=== PATIENT | female | born 1975 | race Caucasian/White ===

== ENCOUNTER → 2016-06-06 | Outpatient (CLI) | payer OTHER ==
[2016-06-06 11:59] LABS: FREE T4 0.96 NG/DL (0.76-1.46)
== END | disposition home or self-care (01) ==
LOC: M LAB 10:44
PROVIDERS: ATTEND Physician Assistant Medical
DX: E06.3 Autoimmune thyroiditis (principal)

== ENCOUNTER → 2016-09-04 | Outpatient (CLI) | payer OTHER ==
[2016-09-04 21:17] LABS: FREE T4 0.86 NG/DL (0.76-1.46)
== END ==
LOC: M LRY 17:53
PROVIDERS: ATTEND Physician Assistant Medical
DX: E06.3 Autoimmune thyroiditis (principal)

== ENCOUNTER → 2016-10-08 | Day surgery (SDC) | payer OTHER ==
[~2016-10-08] VITALS: Ht 175.3 cm; Wt 68.0 kg
[~2016-10-08] MED LIST: ACETAMINOPHEN 650 MG SUPP As Ordered ONE; ACETAMINOPHEN 650 MG SUPP PR ONE; KETOROLAC 30 MG/ML VIAL (J1885) IV PRN; KETOROLAC 60 MG/2 ML VIAL (J1885) As Ordered ONE; LEVO175T2 PO; LIDOCAINE 2% INJ 100 MG/5 ML SDV (FOR ANES.) As Ordered ONE; LR 1,000 ML IV SCH; MAGN1CAP PO; MIDAZOLAM INJ 2 MG/2 ML VIAL (J2250) As Ordered ONE; MULT1TAB10 PO; ONDANSETRON 4MG/2ML VIAL (J2405) As Ordered ONE; ONDANSETRON 4MG/2ML VIAL (J2405) IV PRN; PERCOCET 5MG/325MG TAB PO PRN; PROPOFOL 200 MG/20 ML VIAL As Ordered ONE; TOPA50TA7 PO; VITA-130 PO; [UNRECOGNIZED DRUG - OTHER] PO; [UNRECOGNIZED DRUG - OTHER] PO; [UNRECOGNIZED DRUG - OTHER] PO; fentaNYL 100 MCG/2 ML INJECTION (J3010) As Ordered ONE; fentaNYL 100 MCG/2 ML INJECTION (J3010) IV PRN
[2016-10-08 08:12] LABS: MEAN CORPUSCULAR HGB CONC 33.4 g/dl (32.0-36.5); MEAN CORPUSCULAR VOLUME 92.7 fl (80.0-96.0); RED CELL DISTRIBUTION WIDTH 13.1 % (11.5-14.5)
[2016-10-08 08:39] LABS: ANION GAP 7 MEQ/L (8-16); BLOOD UREA NITROGEN 16 MG/DL (7-18); CALCIUM LEVEL 8.6 MG/DL (8.5-10.1); CARBON DIOXIDE LEVEL 28 MEQ/L (21-32); CHLORIDE LEVEL 106 MEQ/L (98-107); CREATININE FOR GFR 0.61 MG/DL (0.55-1.02); GLOMERULAR FILTRATION RATE > 60.0 (>60); GLUCOSE, FASTING 89 MG/DL (70-105); HCG, SERUM QUANTITATIVE < 1.0 MIU/ML; SODIUM LEVEL 141 MEQ/L (136-145)
[2016-10-08 12:20] VITALS: BP 105/52
--- NOTE | 2016-10-20 07:04 | RO ---
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 POSTOPERATIVE DIAGNOSIS: Adenocarcinoma in situ high-grade disease. OPERATION PROPOSED: Superficial and deep LEEP colonization of the cervix, removal of IUCD. OPERATION PERFORMED: Superficial and deep LEEP colonization of cervix, removal of IUCD, Sturmdorf suture on the right side of the cervix. ANESTHESIA: General. ESTIMATED BLOOD LOSS: 100 mL. SURGEON: Dr. Dias After adequate anesthesia, bladder drained for 250 mL of clear urine. Time-out was performed. Sequentials on board. No antibiotics required. Visualization of the cervix showed a large multiparous cervix midline with a very generous opening to the os. Acetic acid stain was placed. Evidence of white epithelium at the anterior 12 o'clock position. The strings were not visible. Using a stone forceps we extracted an IUCD sent under separate cover to pathology. We sounded the uterus to a depth at 9 inches and a superficial Loop Electrosurgical Excision (LEEP) was performed, marking the area with a stitch of the 12 o'clock position then using a 10 mm square loop a deeply conization was performed. The patient had a moderate amount of bleeding. We tried an attempted coagulation with a 5 mm ball 90% of the bleeding was successfully contained, but there was still some persistent pumping and therefore we put a Sturmdorf suture on the right side of the cervix, securing hemostasis at that point. We put a dilator in and demonstrated patency of the cervical canal. We monitored the bleeding for about 5-7 minutes. There is no evidence of active bleeding. Instrument and pad count correct. The patient was then taken to recovery in good condition. cc: *ePrcy SHERIDAN
== END ==
LOC: M SDC 07:22
PROVIDERS: ATTEND Obstetrics & Gynecology
DX: D06.9 Carcinoma in situ of cervix, unspecified (principal); Z30.432 Encounter for removal of intrauterine contraceptive device; E03.9 Hypothyroidism, unspecified; G43.909 Migraine, unspecified, not intractable, without status migrainosus; Z79.899 Other long term (current) drug therapy
CPT/HCPCS: 36415; 57522; 58301; 80048; 84702; 85027; 88307; J1885; J2250; J2405; J3010

== ENCOUNTER → 2016-11-07 | Outpatient (CLI) | payer OTHER ==
[~2016-11-07] MED LIST changes: -ACETAMINOPHEN 650 MG SUPP As Ordered ONE; -ACETAMINOPHEN 650 MG SUPP PR ONE; -KETOROLAC 30 MG/ML VIAL (J1885) IV PRN; -KETOROLAC 60 MG/2 ML VIAL (J1885) As Ordered ONE; -LIDOCAINE 2% INJ 100 MG/5 ML SDV (FOR ANES.) As Ordered ONE; -LR 1,000 ML IV SCH; -MIDAZOLAM INJ 2 MG/2 ML VIAL (J2250) As Ordered ONE; -ONDANSETRON 4MG/2ML VIAL (J2405) As Ordered ONE; -ONDANSETRON 4MG/2ML VIAL (J2405) IV PRN; -PERCOCET 5MG/325MG TAB PO PRN; -PROPOFOL 200 MG/20 ML VIAL As Ordered ONE; -fentaNYL 100 MCG/2 ML INJECTION (J3010) As Ordered ONE; -fentaNYL 100 MCG/2 ML INJECTION (J3010) IV PRN
[2016-11-07 16:02] LABS: FREE T4 0.57 NG/DL (0.76-1.46)
== END ==
LOC: M LAB 15:08
PROVIDERS: ATTEND Physician Assistant Medical
DX: E06.3 Autoimmune thyroiditis (principal)

== ENCOUNTER → 2017-01-28 | Outpatient (CLI) | payer OTHER ==
[~2017-01-28] MED LIST changes: -TOPA50TA7 PO; +TOPA50TA8 PO; -VITA-130 PO; +VITA500T PO
[2017-01-28 21:33] LABS: FREE T4 0.62 NG/DL (0.76-1.46)
== END ==
LOC: M LRY 16:58
PROVIDERS: ATTEND Internal Medicine Endocrinology, Diabetes & Metabolism
DX: E06.3 Autoimmune thyroiditis (principal)

== ENCOUNTER → 2017-05-05 | Outpatient (CLI) | payer OTHER ==
[2017-05-05 12:43] LABS: FREE T4 0.66 NG/DL (0.76-1.46)
== END ==
LOC: M LRY 10:26
PROVIDERS: ATTEND Internal Medicine Endocrinology, Diabetes & Metabolism
DX: E06.3 Autoimmune thyroiditis (principal)

== ENCOUNTER → 2018-02-02 | Outpatient (CLI) | payer OTHER ==
[2018-02-02 22:28] LABS: FREE T4 0.71 NG/DL (0.76-1.46)
== END ==
LOC: M LRY 11:32
DX: E06.3 Autoimmune thyroiditis (principal)
CPT/HCPCS: 84443

== ENCOUNTER → 2018-05-16 | Outpatient (REF) | payer OTHER ==
[2018-05-16 20:43] LABS: CHLAMYDIA DNA AMPLIFICATION NEGATIVE (NEGATIVE); GC DNA AMPLIFICATION NEGATIVE (NEGATIVE)
[2018-05-20 14:10] LABS: HSV TYPE I IgM AB <1:10 titer (<1:10); HSV TYPE II IgG SPECIFIC <0.91 index (0.00-0.90); HSV TYPE II IgM ABY <1:10 titer (<1:10)
== END ==
LOC: M SFHCLERA 12:21
PROVIDERS: ATTEND Nurse Practitioner Family
DX: N89.8 Other specified noninflammatory disorders of vagina (principal)

== ENCOUNTER → 2018-06-11 | Outpatient (CLI) | payer OTHER ==
[2018-06-11 20:09] LABS: FREE T4 0.67 NG/DL (0.76-1.46); THYROID STIMULATING HORMONE 5.55 uIU/ML (0.358-3.740)
== END ==
LOC: M LRY 15:32
PROVIDERS: ATTEND Nurse Practitioner Family
DX: E06.3 Autoimmune thyroiditis (principal)

== ENCOUNTER → 2018-08-03 | Outpatient (REF) | payer OTHER | LOC: M SFHCLERA 14:50 | PROVIDERS: ATTEND Physician Assistant | DX: Z53.9 Procedure and treatment not carried out, unspecified reason (principal); M79.10 Myalgia, unspecified site ==

== ENCOUNTER → 2018-08-04 | Outpatient (REF) | payer OTHER ==
[2018-08-04 13:39] LABS: BASO % 0.7 % (0.0-1.0); EOS # 0.1 10^3/uL (0.0-0.50); EOS % 1.5 % (0.0-3.0); HEMATOCRIT 35.3 % (36.0-47.0); HEMOGLOBIN 11.7 g/dl (12.0-15.5); LYMPH # 1.3 10^3/uL (1.5-4.5); LYMPH % 23.2 % (24.0-44.0); MEAN CORPUSCULAR HEMOGLOBIN 29.8 pg (27.0-33.0); MEAN CORPUSCULAR HGB CONC 33.1 g/dl (32.0-36.5); MEAN CORPUSCULAR VOLUME 90.1 fl (80.0-96.0); MONO # 0.6 10^3/uL (0.0-0.8); NEUTROPHILS # 3.4 10^3/uL (1.8-7.7); NEUTROPHILS % 63.2 % (36.0-66.0); PLATELET COUNT, AUTOMATED 298 10^3/uL (150-450); RED BLOOD COUNT 3.92 10^6/uL (4.00-5.40); WHITE BLOOD COUNT 5.4 10^3/uL (4.0-10.0)
[2018-08-04 14:07] LABS: ALBUMIN 3.8 GM/DL (3.2-5.2); ALT/SGPT 27 U/L (12-78); BILIRUBIN,TOTAL 0.3 MG/DL (0.2-1.0); BLOOD UREA NITROGEN 14 MG/DL (7-18); C REACTIVE PROTEIN QUANTITATIV < 0.30 MG/DL (0.00-0.30); CARBON DIOXIDE LEVEL 29 MEQ/L (21-32); CHLORIDE LEVEL 106 MEQ/L (98-107); CREATININE FOR GFR 0.54 MG/DL (0.55-1.30); GLOMERULAR FILTRATION RATE > 60.0 (>58); GLUCOSE, FASTING 92 MG/DL (70-100); POTASSIUM SERUM 3.9 MEQ/L (3.5-5.1); RHEUMATOID FACTOR QUANT < 10.0 IU/ML (<15.0); SODIUM LEVEL 139 MEQ/L (136-145); TOTAL PROTEIN 6.8 GM/DL (6.4-8.2)
[2018-08-04 14:23] LABS: ERYTHROCYTE SEDIMENTATION RATE 10 mm/hr (0-20)
[2018-08-06 00:06] LABS: ANTINUCLEAR ANTIBODIES DIRECT Negative (Negative); Lyme Disease IgG/IgM Antibodie <0.91 ISR (0.00-0.90); Lyme Disease IgM Ab Quantitati <0.80 index (0.00-0.79)
== END ==
LOC: M SFHCLERA 11:32
PROVIDERS: ATTEND Physician Assistant
DX: M79.10 Myalgia, unspecified site (principal)

== ENCOUNTER → 2018-08-04 | Outpatient (REF) | payer OTHER | LOC: M SFHCLUC 15:29 | PROVIDERS: ATTEND Physician Assistant | DX: R19.7 Diarrhea, unspecified (principal) ==

== ENCOUNTER → 2018-08-09 | Outpatient (CLI) | payer OTHER ==
[2018-08-09 19:26] LABS: FREE T4 0.73 NG/DL (0.76-1.46); THYROID STIMULATING HORMONE 0.527 uIU/ML (0.358-3.740)
== END ==
LOC: M LRY 12:04
PROVIDERS: ATTEND Nurse Practitioner Family
DX: E06.3 Autoimmune thyroiditis (principal)